=== PATIENT | male | born 1970 | race Caucasian/White ===

== ENCOUNTER 2018-03-11 19:02 | Emergency (ER) | payer OTHER ==
[2018-03-11 19:43] VITALS: BP 126/89; PULSE 93; RESP 15; TEMP 98.6; O2SAT 95
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
== END 2018-03-11 21:01 ==
LOC: NEDAMB 19:02
DX: S09.90XA Unspecified injury of head, initial encounter (principal); S01.01XA Laceration without foreign body of scalp, initial encounter; Y00.XXXA Assault by blunt object, initial encounter
CPT/HCPCS: 70450; 99283